=== PATIENT | female | born 2000 | race Hispanic/Latino ===

== ENCOUNTER 2024-01-17 14:22 | Outpatient (CLI) | payer OTHER | END 2024-01-17 14:23 | disposition home or self-care (01) | LOC: CSHULT 14:22 | PROVIDERS: ATTEND Family Medicine | DX: Z34.03 Encounter for supervision of normal first pregnancy, third trimester (principal); Z3A.38 38 weeks gestation of pregnancy | CPT/HCPCS: 76815 ==

== ENCOUNTER 2024-01-30 08:45 | Inpatient (IN) | payer OTHER ==
[2024-01-30] MEDS ORDERED: hydrALAZINE 20 MG/ML VIAL SLOW IVP PRN ×2 (09:23→09:45)
[2024-01-30] MEDS ORDERED: Oxytocin 30 units/NS 500 ML 500 ML IV SCH (09:45)
[2024-01-30] MEDS ORDERED: Promethazine HCl 25 MG/ML VIAL IM PRN (09:45)
[2024-01-30] MEDS ORDERED: Lidocaine 1% (PF) 30 ML VIAL SC PRN (09:45)
[2024-01-30] MEDS ORDERED: Ondansetron PF 4 MG/2 ML Vial IVP PRN (09:45)
[2024-01-30 10:28] VITALS: BMI 35.4
[2024-01-30 10:43] LABS: Hematocrit 40.1 % (34.9-44.5); Hemoglobin 13.9 g/dL (12.0-15.5); Mean Corpuscular HGB CONC 34.7 g/dL (32.0-36.0); Mean Corpuscular Hemoglobin 29.5 pg (27.0-33.0); Mean Corpuscular Volume 85.1 fL (81.6-98.3); Mean Platelet Volume 10.4 fL (7.4-10.4); Platelet Count 272 10x3/uL (150-450); RBC Distribution Width 15.1 % (11.5-14.5); Red Blood Cell (RBC) Count 4.71 10x6/uL (3.90-5.03); White Blood Cell (WBC) Count 12.7 10x3/uL (3.5-10.5)
[2024-01-30 11:03] LABS: Syphilis Antibody Nonreactive (Nonreactive); Syphilis Antibody Index 0.06 S/CO (<1.00 Non-Reactive)
[2024-01-30 11:04] LABS: HBsAg Index 0.23 S/CO (0-0.99); Hep B Surf Ag - L&D Non-Reactive S/CO (NonReactive)
[2024-01-30] MEDS: fentaNYL/Ropivacaine Epidural 100 ML ONE (11:42)
[2024-01-30] MEDS: Lactated Ringer's 1,000 ML IV SCH (16:05)
[2024-01-31] MEDS ORDERED: hydrALAZINE 20 MG/ML VIAL SLOW IVP PRN (01:29)
[2024-01-31] MEDS ORDERED: Misoprostol 200 MCG TAB VAG PRN (01:29)
[2024-01-31] MEDS ORDERED: Methylergonovine 0.2 MG/ML VIAL IM PRN (01:29)
[2024-01-31] MEDS ORDERED: Promethazine HCl 25 MG/ML VIAL IM PRN (01:29)
[2024-01-31] MEDS ORDERED: Ondansetron PF 4 MG/2 ML Vial IVP PRN (01:29)
[2024-01-31] MEDS ORDERED: Bisacodyl 10 MG SUPP PR PRN (01:29)
[2024-01-31] MEDS ORDERED: Oxytocin 30 units/NS 500 ML 500 ML IV SCH (01:29)
[2024-01-31] MEDS: Ibuprofen 800 MG TAB PO SCH (05:05)
[2024-01-31] MEDS: Boostrix 0.5 ML (Tdap) VIAL (>/=7 yrs of age) IM ONE (07:17)
[2024-01-31] MEDS ORDERED: Polyethylene Glycol 3350 17 GM Packet PO PRN (07:36)
[2024-01-31] MEDS: Ferrous Sulfate 325 MG TAB PO SCH (08:33)
[2024-01-31] MEDS: Milk Of Magnesia 30 ML UDCUP PO PRN (08:46)
[2024-01-31] MEDS: Docusate 100 MG CAP PO SCH (08:46)
[2024-01-31] MEDS: Benzocaine-Menthol 82.5 ML CAN TOP PRN (08:46)
[2024-01-31] MEDS: Hydrocortisone/Pramoxine (Proctofoam HC) 10 GM BOX TOP SCH (10:44)
[2024-02-01 07:55] VITALS: BP 106/57; TEMP 98.2
[2024-02-01] MEDS: Measles/Mumps/Rubella 10 MCG/0.5 ML VIAL SC ONE (13:11)
== END 2024-02-01 13:40 | disposition home or self-care (01) | DRG 768 ==
LOC: CSHLD/OP 08:45 → CSHLD 10:16 → CSHPED 01-31 00:40
PROVIDERS: ADMIT Family Medicine; ATTEND Family Medicine
PROC: 10E0XZZ Delivery of Products of Conception, External Approach (ICD-10-PCS; principal; 2024-01-30)
PROC: 0DQR0ZZ Repair Anal Sphincter, Open Approach (ICD-10-PCS; 2024-01-30)
DX: O70.21 Third degree perineal laceration during delivery, IIIa (principal); Z37.0 Single live birth; Z3A.40 40 weeks gestation of pregnancy; O71.82 Other specified trauma to perineum and vulva
CPT/HCPCS: 51702; 85027; 86780; 86850; 86900; 86901; 87340; 90707; 99285; J7120